=== PATIENT | male | born 1970 | race Hispanic/Latino ===

== ENCOUNTER 2025-02-23 19:45 | Emergency (ER) | payer OTHER, SELFPAY ==
[2025-02-23 19:56] VITALS: BP 135/80; PULSE 76; RESP 16; TEMP 36.8; O2SAT 95; BMI 34.4
--- NOTE | 2025-02-24 00:24 | ED_ITS ---
HPI - Wound/Laceration General Chief Complaint: Wound/Laceration Stated Complaint: R Hand Finger Laceration Time Seen by Provider: 02/24/25 00:18 Source: patient and family Mode of arrival: Ambulatory Limitations: no limitations History of Present Illness HPI narrative: 54-year-old male no reported medical issues walking the dog when the dog started running pull the leash to break and resulted in a cut to the skin from the inner plastic core of the leash. Cut is on the 4th finger with a laceration to the tip. Patient denies any weakness, has a normal range of motion. No loss of sensation. States Tdap was 5 years ago. Patient denies any other injuries. States does not feel like he broke anything. Related Data Allergies Allergy/AdvReac Type Severity Reaction Status Date / Time No Known Drug Allergies Allergy Verified 02/23/25 19:56 Review of Systems Review of Systems ROS Unobtainable: All systems reviewed & are unremarkable except as noted in HPI and below Patient History Social History Smoking Status: Never smoker Smoking Status: Never smoker Exam Narrative Exam Narrative: GENERAL: Alert and oriented x three, female in mild distress HEENT: Head normocephalic, atraumatic, EOMI, pupils reactive, face symmetric, moist mucous membranes NECK: Supple, full range of motion EXTREMITIES: Normal range of motion, no clubbing or edema. Neurovascularly intact. Patient's 4th finger has a laceration over the pad of the 4th finger that is slightly irregular extending towards the nail on the ulnar side. There is a portion of the top layer of skin being avulsed (skin tear) just adjacent to the nail but no laceration. Patient has sensation to light touch. Has full range of motion. No bony tenderness. Nail appears to be intact no subungual hematoma appreciated NEUROLOGICAL: Cranial nerves II through XII grossly intact. Moving all extremities SKIN: Warm, dry, no petechiae, no rashes or lesions. Initial Vital Signs Initial Vital Signs: Vital Signs Temperature 98.2 F 02/23/25 19:56 Pulse Rate 76 02/23/25 19:56 Respiratory Rate 16 02/23/25 19:56 Blood Pressure 135/80 02/23/25 19:56 Pulse Oximetry 95 02/23/25 19:56 Oxygen Delivery Method Room Air 02/23/25 19:56 Procedures Laceration Repair Laceration 1: Site: hand (4th finger R hand) Side (If applicable): right Size (cm): 1 Description: irregular and clean Depth: simple, single layer Local Anesthetic: lidocaine 2% Amount of anesthesia used (mL): 2 Pre-repair: wound explored, irrigated extensively and deep structures intact Skin layer closed with: nylon Skin layer suture size: 4-0 Number of sutures: 4 Technique: simple, interrupted Course Orders Ordered: Discontinued Medications Bacitracin (Bacitracin Oint 0.9 Gm Pckt) 1 applic TOP NOW ONE Stop: 02/24/25 00:49 Last Admin: 02/24/25 00:55 Dose: 1 applic Documented By: SUSANA Vital Signs Vital signs: Vital Signs - 8 hr 02/23/25 19:56 02/24/25 01:13 Temperature 98.2 F Pulse Rate 76 73 Respiratory Rate 16 15 Blood Pressure 135/80 127/76 Pulse Oximetry 95 98 Oxygen Delivery Method Room Air Room Air MDM - Wound/Laceration MDM Narrative Medical decision making narrative: 54-year-old male had laceration to his 4th digit in his right hand, area was c leansed, verbal consent was obtained, wound was repaired, patient was bandaged. Discussed return precautions all questions answered. Patient was tetanus up-to-date. Discharge Plan Departure Patient Disposition: Home Clinical Impression: Finger laceration Instructions: DI for Laceration Repair -- Finger Activity Restrictions/Additional Instructions: Wound Care: Keep wound(s) clean and dry. Wash daily with soap and water only. Keep clean and dry. Keep covered if you are using your hands for any activities that are not clean. Do not use over the counter products (alcohol or peroxide)on the wounds unless instructed by a physician. You can use topical triple antibiotic ointment. If wound condition worsens (increased/expanding redness, developing fluid blisters, or worsening pain), either contact your doctor for an urgent re- assessment , or return to the Emergency Department. Return to the ED, urgent care, or visit a primary care doctor for removal of sutures in 7-10 days. Return if fever greater than 100.4 Fahrenheit, increased swelling, increasing pain or worsening symptoms such as increased discharge or spreading redness. Stand Alone Forms: Patient Portal/API/Survey
[2025-02-24] MEDS: BACITRACIN OINT 0.9 GM PCKT 1 APPLIC TOP (00:55)
[2025-02-24 01:13] VITALS: BP 127/76; PULSE 73; RESP 15; O2SAT 98
== END 2025-02-24 01:14 | disposition home or self-care (01) ==
PROVIDERS: Emergency Provider Emergency Medicine
DX: S61.214A Laceration without foreign body of right ring finger without damage to nail, initial encounter (principal); W26.9XXA Contact with unspecified sharp object(s), initial encounter
CPT/HCPCS: 12001; 99283